=== PATIENT | male | born 1940 | race African-American/Black ===

== ENCOUNTER 2017-10-09 12:02 | Inpatient (IN) | payer MEDICARE, OTHER, SELFPAY ==
[2017-10-09] VITALS (11 sets, daily range): BP systolic 134–154; BP diastolic 58–79; PULSE 43–83; RESP 16–20; TEMP 36.2–36.8; O2SAT 95–96; BMI 28.5; BMI 28.2; BMI 28.3
--- NOTE | 2017-10-09 12:27 | CT_ITS ---
STUDY: CT BRAIN WITHOUT CONTRAST REASON FOR EXAM: Male, 76 years old. Seizure, TIA, weakness RADIATION DOSAGE (If Supplied By Facility): CTDIvol = ( 44.99 ) mGy, DLP = ( 779.24 ) mGycm TECHNIQUE: Transaxial CT imaging of the brain was performed without administration of intravenous contrast material. Sagittal and coronal reconstructed images are provided and reviewed. Individualized dose optimization techniques were used for this CT. COMPARISON: 11/04/2013 FINDINGS: There is a small fat density within the left frontal scalp which may represent a small lipoma. Normal calvarium. There is moderate cerebral atrophy with widening of the extra-axial spaces and ventricular dilatation. There are areas of decreased attenuation within the white matter tracts of the supratentorial brain, consistent with microvascular disease changes. Normal basal ganglia and thalami. Normal brainstem. There is mild cerebellar atrophy. There is no intracranial hemorrhage. There are no findings of an acute ischemic infarction. Normal visualized paranasal sinuses. CT/Brain/Head without Contrast IMPRESSION: Chronic involutional changes. No acute intracranial abnormality. The ventricles are slightly larger than on the prior CT of 11/04/2013. Electronically Signed: Ian Guerra DO at 13:44 EDT Tel , Service support ,
--- NOTE | 2017-10-09 12:28 | EKG12_ITS ---
Test Reason : NEURO TYPE SYM Blood Pressure : / mmHG Vent. Rate : 054 BPM Atrial Rate : 054 BPM P-R Int : 184 ms QRS Dur : 084 ms QT Int : 460 ms P-R-T Axes : 027 017 064 degrees QTc Int : 436 ms Sinus bradycardia Nonspecific T wave abnormality Confirmed by EZEKIEL BRADLEY, SHERI ([id number]), acquisition editor OZIEL DIAL ([id number]) on 10/10/2017 2:53:35 PM Referred By: KATHLEEN Confirmed By:SHERI FALCON MD
--- NOTE | 2017-10-09 12:30 | RAD_ITS ---
STUDY: X-RAY CHEST REASON FOR EXAM: Male, 76 years old. Weakness and fatigue TECHNIQUE: Single AP portable view of the chest. COMPARISON: 03/09/2016 FINDINGS: The lungs are clear and expanded. There is no demonstrated pleural abnormality. Sternal cerclage wires and vascular clips are present from a prior sternotomy and coronary artery bypass graft procedure (CABG). Normal mediastinum and gia. Normal visualized pulmonary arteries. There is mild calcification of the aortic arch. There are diffuse degenerative changes of the visualized thoracic spine. The bones are demineralized. There is no demonstrated abnormality of the visualized soft tissue structures of the upper abdomen. RAD/Chest 1 View (Portable) IMPRESSION: Postoperative changes of coronary artery bypass graft. No focal consolidation. Electronically Signed: Ian Guerra DO at 12:52 EDT Tel , Service support ,
[2017-10-09 12:53] LABS: Absolute Neutrophil Count 2.4 X10^3/uL (2.0-7.7); Basophil# 0.02 X10^3/uL; Basophil% 0.4 % (0-1); Eosinophil# 0.34 X10^3/uL; Eosinophils% 7.1 % (0-5); Hematocrit 45.5 % (40-54); Hemoglobin 15.2 g/dl (13.0-16.5); Lymphocyte % 31.5 % (19-41); Mean Corp Hgb Conc 33.4 g/gl (32-36); Mean Corpuscular Hgb 30.4 pg (27.0-32.0); Mean Platelet Vol. 9.7 fl (6.2-12.0); Monocyte# 0.51 X10^3/uL; Monocyte% 10.7 % (0-10); Neutrophil # 2.38 X10^3/uL (2.7-7.7); Neutrophil % 50.1 % (47-70); Platelet Count 155 K/mm3 (150-450); RBC Distribution Width CV 13.4 % (11.6-14.6); RBC Distribution Width SD 44.5 fl (35.1-43.9); White Blood Count 4.8 K/mm3 (4.4-11.0)
[2017-10-09 12:54] LABS: POSITIVE COUNT NO; POSITIVE DIFFERENTIAL NO; POSITIVE MORPHOLOGY NO
[2017-10-09 13:46] LABS: ALB/GLOB Ratio 0.9 RATIO (0.9-2.4); AST(SGOT) 23 U/L (15-37); Alanine Aminotransfer ALT/SGPT 25 U/L (16-61); Albumin, Serum 3.7 g/dL (3.2-5.0); Alkaline Phosphatase 73 U/L (45-117); Anion Gap 6 (5-15); BUN 14 mg/dL (7-18); BUN/Creat Ratio 10.3 RATIO (10-20); Chloride 102 mmol/L (98-107); Creatinine, Serum 1.36 mg/dL (0.70-1.30); EST Glomerular Filtration Rate 54 mL/min (>60); Est Glom Filt Rate - Afr Amer 66 mL/min (>60); Globulin 4.1 g/dL (2.2-4.2); Glucose 90 mg/dL (74-106); Potassium 3.4 mmol/L (3.5-5.1); Protein, Total 7.8 g/dL (6.4-8.2); Sodium Level 139 mmol/L (136-145)
--- NOTE | 2017-10-09 14:17 | ED.VISSUMM ---
- ER Visit Summary Date of Service: 10/09/17 Chief Complaint: Possible seizures History of Present Illness: The patient is a 76 M who presents with possible seizures. This is been going on for about 6 months. The reports intermittent episodes of muscle rigidity and staring spells. He is also had increased urinary and fecal incontinence. They state he has been harder to wake up in the mornings and also had increased sleeping. He was seen in the office today. There was concern for possible seizures and he was sent in to expedite workup. Physical Examination: Afebrile vitals are normal Moist mucous membranes Heart regular rate and rhythm Lungs clear Abdomen soft Alert No focal or lateralizing neurological deficits, NIH stroke scale is 2 as he is unable to answer the month Or his age Test Results: EKG shows sinus bradycardia at a rate of 54. Labs unremarkable. Chest x-ray shows postoperative changes. CT of the head shows chronic changes no acute findings. Emergency Department Course and Treatment: His workup is essentially unremarkable. His primary care physician wanted him to be admitted for further workup including an EEG. Patient discussed with the hospitalist and admitted. Treatment Plan: [] Disposition: Admit Impression: Seizures This note was generated with [employer] dictation software. It may contain incorrect words, spelling, and punctuation that were not noted in review of the chart prior to signing ED Disposition - Plan for ED Patient: Chief Complaint: Neuro S/Sx Referrals: Delia Shaikh DO [Primary Care Provider] -
--- NOTE | 2017-10-09 14:23 | NURSING ---
PCU SEIZURES KATHLEEN/ASHELFAH
--- NOTE | 2017-10-09 14:29 | CASEMGMT ---
Social Work Note Referral from Dr. Jarrell as pt's was inquiring about additional home health services. [facility], but states she was told they could get more if they went through the hospital. Also stated that she had a wedding at the end of the month and wanted to know if there were respite services. In to speak with pt and and hospitalist was talking to them. Will attempt to see as time allows. Leia Farrar, COMMISSIONS MANAGER, RUNNING RIGGER
--- NOTE | 2017-10-09 14:45 | PCM.HP.STD ---
Problem List (1) Stage 3 chronic kidney disease Status: Chronic (2) Depression Status: Chronic (3) Benign prostatic hyperplasia Status: Chronic (4) Hyperlipidemia Status: Chronic (5) Hypertension Status: Chronic (6) Status post coronary artery bypass graft Status: Chronic (7) Coronary artery disease Status: Chronic (8) History of esophageal tear Status: Chronic (9) History of prostate cancer Status: Chronic History of Present Illness Date of Admission: 10/09/17 Chief Complaint: Possible seizure. The patient is a 76 year old M with past medical history as mentioned above presented to the ER by his PCP for admission and evaluation for possible seizure. At this time, the patient is alert but disoriented to place and time because he is demented and he was not able to provide any history. His and his caregiver were at the bedside and he provided most of the information. According to his , the patient has been having episodes what it looks like seizure. The described those episodes as patient becomes stiff mainly on the upper part of his body, clenching both hands associated with staring eyes, lasts for about few minutes and patient becomes very weak and lousy afterwards. She reported that he has been having increased urinary and fecal incontinence. Those episodes has been happening since March,, it happens every few days. The caregiver mentioned that 2 days ago, she tried to wake him up and it was very hard to wake him up, took her more than 30 minutes to have him open his eyes and she mentioned that he has been rigid and had urine incontinence. There is no reported obvious seizure described by the or the caregiver. Also, his mentioned that he has been getting very weak and tired, sleepy most of his days over the last few weeks. The patient knows his name and date of on and he denied any pains. In the emergency department, his heart rate was in the high 50s, other vital signs are stable. His routine blood work was remarkable for potassium of 3.4 and creatinine of 1.26, otherwise normal. LFT was normal. Urine analysis revealed no evidence of acute cystitis. CT scan brain showed no acute infarction or hemorrhage. Chest x-ray showed no acute infiltrate, consolidation or effusion. He is being admitted for evaluation for possible seizure. Past Medical History Past Medical History (Chronic Problems): Chronic Problems Stage 3 chronic kidney disease (Chronic) Depression (Chronic) Benign prostatic hyperplasia (Chronic) Hyperlipidemia (Chronic) Hypertension (Chronic) Status post coronary artery bypass graft (Chronic) Coronary artery disease (Chronic) History of esophageal tear (Chronic) History of prostate cancer (Chronic) Allergies No Known Allergies Allergy (Verified 10/09/17 12:04) Home Medications: Ambulatory Orders Medication Instructions Recorded Aspirin [Aspirin, Baby] 81 mg PO DAILY@0800 02/09/16 Atenolol [Tenormin (Beta Lorin)] 100 mg PO BID 02/09/16 Hydralazine HCl 50 mg PO BID 02/09/16 Memantine HCl 10 mg PO BID 02/09/16 Pravastatin [Pravachol] 20 mg PO DAILY 02/09/16 Sertraline HCl [Zoloft] 50 mg PO BID 02/09/16 Triamterene/Hydrochlorothiazid 1 each PO DAILY 02/09/16 [Triamterene-Hctz 37.5-25 mg Tb] Chlorpromazine HCl 10 mg PO PRN PRN 03/09/16 Cholecalciferol (VIT D3) [Vitamin 1,000 unit PO BID 03/09/16 D] Melatonin/Pyridoxine HCl (B6) 2.5 each PO QHS PRN PRN 03/09/16 [Melatonin 1 mg Tablet] Omeprazole [Prilosec] 20 mg PO DAILY 03/09/16 Tamsulosin HCl [Flomax] 0.4 mg PO DAILY 03/09/16 Surgical History: coronary bypass surgery Psychiatric History: Depression Smoking Status: Former smoker Alcohol: None Drugs: None - *Family History Maternal History Items: Diabetes, Heart Disease Paternal History Items: No pertinent history Review of Systems Constitutional: Reports: Weakness, Fatigue. Denies: Anorexia, Fever Eyes: Denies: Blurred vision, Double vision, Drainage, Redness, Vision Change HEENT: Denies: Difficulty Hearing, Ear Pain, Eye Pain, Nasal Congestion, Sore Throat Cardiovascular: Denies: Chest Pain, Chest Pressure, Chest Tightness, Palpitations, Syncope Respiratory: Denies: Cough, Pleuritic Pain, Shortness of Breath, Sputum production, Wheezing Gastrointestinal: Denies: Abdominal Pain, Constipation, Diarrhea, Nausea, Vomiting Genitourinary: Denies: Dysuria, Frequency, Hematuria Musculoskeletal: Denies: Arm Pain, Back Pain, Foot Pain Skin: Denies: Dryness, Rash Neurological: Reports: Confusion. Denies: Balance problems, Double vision, Change in Speech, Headaches, Incoordination, Numbness Psychiatric: Reports: Depression. Denies: Anxiety Endocrine: Denies: Change in Body Habitus, Polydipsia VTE Information - Inpt Only VTE Present on Admission: No VTE Mechan Device Prophylaxis: None VTE Pharm Prophylaxis ordered?: Yes - Physical Exam General: Alert, Cooperative, No apparent distress, Confused, Disoriented HEENT: Atraumatic, PERRLA, EOMI Oral: Moist Mucosa, No Gingival or Mucosal Lesions/ Ulcerations Neck: Supple, No JVD, Negative Carotid Bruits, Trachea Midline, Thyroid Normal Size and Texture Lungs: Clear to auscultation, No rhonchi, No wheeze, No rales, Diminished Cardiovascular: Regular rate, Regular Rhythm, Normal S1, Normal S2, No murmurs, PMI Normal Abdomen: Bowel Sounds Present, Soft, Non Tender, Non-Distended, No Hepato-splenomegaly Extremities: No clubbing, No cyanosis, Edema - Trace edema. Skin: No rashes, No breakdown Lymphatic: No Cervical, Supraclavicular, or Inguinal Adenopathy Neurological: Cranial nerves II-XII grossly intact, Motor Exam 5/5 strength throughout Psych/Mental Status: Flat Affect Vital Signs Temp Pulse Resp BP Pulse Ox 97.2 F L 83 18 137/74 H 96 10/09/17 12:05 10/09/17 12:05 10/09/17 12:05 10/09/17 12:05 10/09/17 12:05 Laboratory Tests 10/09/17 10/09/17 10/09/17 Range/Units 13:20 13:15 12:40 WBC (4.4-11.0) K/mm3 RBC (4.6-6.2) M/mm3 Hgb (13.0-16.5) g/dl Hct (40-54) % MCV (80-94) fL MCH (27.0-32.0) pg MCHC (32-36) g/gl RDW (11.6-14.6) % RDW Differential (35.1-43.9) fl Plt Count (150-450) K/mm3 MPV (6.2-12.0) fl Immature Gran % (Auto) (0.0-0.9) % Neut % (Auto) (47-70) % Lymph % (Auto) (19-41) % [place] % (Auto) (0-10) % Eos % (Auto) (0-5) % Baso % (Auto) (0-1) % Absolute Neuts (auto) (2.0-7.7) X10^3/uL Absolute Lymphs (auto) (0.83-4.51) X10^3/ul Total Counted Sodium 139 Cancelled Potassium 3.4 L Cancelled Chloride 102 Cancelled Carbon Dioxide 31.0 Cancelled Anion Gap 6 Cancelled BUN 14 Cancelled Creatinine 1.36 H Cancelled Estim Creat Clear Calc 45.40 Cancelled Est GFR (MDRD) Af Amer 66 Cancelled Est GFR (MDRD) Non-Af 54 L Cancelled BUN/Creatinine Ratio 10.3 Cancelled Glucose 90 Cancelled Calcium 9.0 Cancelled Total Bilirubin 0.70 Cancelled AST 23 Cancelled ALT 25 Cancelled Alkaline Phosphatase 73 Cancelled Total Protein 7.8 Cancelled Albumin 3.7 Cancelled Globulin 4.1 Cancelled Albumin/Globulin Ratio 0.9 Cancelled Urine Color Yellow (Yellow) Urine Clarity Clear (Clear) Urine pH 7.0 (5.0 - 8.0) Ur Specific [place] 1.005 (1.002-1.030) Urine Protein Negative (Negative) mg/dl Urine Glucose (UA) Normal (Normal) mg/dl Urine Ketones Negative (Negative) mg/dl Urine Occult Blood Negative (Negative) /ul Urine Nitrite Negative (Negative) Urine Bilirubin Negative (Negative) mg/dL Urine Urobilinogen Normal (Normal) mg/dl Ur Leukocyte Esterase Negative (Negative) /ul Urine RBC 0 SEEN (0-5) /hpf Urine WBC 0 SEEN (0-5) /hpf Ur Squamous Epith Cells 0 SEEN (0-5) /hpf Urine Bacteria 0 SEEN (None Seen) /hpf Urine Mucus 0 SEEN (<or=2+) /hpf 10/09/17 Range/Units 12:40 WBC 4.8 (4.4-11.0) K/mm3 RBC 5.00 (4.6-6.2) M/mm3 Hgb 15.2 (13.0-16.5) g/dl Hct 45.5 (40-54) % MCV 91.0 (80-94) fL MCH 30.4 (27.0-32.0) pg MCHC 33.4 (32-36) g/gl RDW 13.4 (11.6-14.6) % RDW Differential 44.5 H (35.1-43.9) fl Plt Count 155 (150-450) K/mm3 MPV 9.7 (6.2-12.0) fl Immature Gran % (Auto) 0.200 (0.0-0.9) % Neut % (Auto) 50.1 (47-70) % Lymph % (Auto) 31.5 (19-41) % [place] % (Auto) 10.7 H (0-10) % Eos % (Auto) 7.1 H (0-5) % Baso % (Auto) 0.4 (0-1) % Absolute Neuts (auto) 2.4 (2.0-7.7) X10^3/uL Absolute Lymphs (auto) 1.50 (0.83-4.51) X10^3/ul Total Counted Not Reportable Sodium Potassium Chloride Carbon Dioxide Anion Gap BUN Creatinine Estim Creat Clear Calc Est GFR (MDRD) Af Amer Est GFR (MDRD) Non-Af BUN/Creatinine Ratio Glucose Calcium Total Bilirubin AST ALT Alkaline Phosphatase Total Protein Albumin Globulin Albumin/Globulin Ratio Urine Color (Yellow) Urine Clarity (Clear) Urine pH (5.0 - 8.0) Ur Specific [place] (1.002-1.030) Urine Protein (Negative) mg/dl Urine Glucose (UA) (Normal) mg/dl Urine Ketones (Negative) mg/dl Urine Occult Blood (Negative) /ul Urine Nitrite (Negative) Urine Bilirubin (Negative) mg/dL Urine Urobilinogen (Normal) mg/dl Ur Leukocyte Esterase (Negative) /ul Urine RBC (0-5) /hpf Urine WBC (0-5) /hpf Ur Squamous Epith Cells (0-5) /hpf Urine Bacteria (None Seen) /hpf Urine Mucus (<or=2+) /hpf Clinical Impression(s) from Imaging Studies Brain CT 10/09/17 12:27 IMPRESSION: Chronic involutional changes. No acute intracranial abnormality. The ventricles are slightly larger than on the prior CT of 11/04/2013. Electronically Signed: Ian Guerra DO at 13:44 EDT Tel , Service support , Chest X-Ray 10/09/17 12:30 IMPRESSION: Postoperative changes of coronary artery bypass graft. No focal consolidation. Electronically Signed: Ianmariluz Guerra DO at 12:52 EDT Tel , Service support , Assessment/Plan This is a 76 years old male patient referred to the ER by PCP for admission for probable seizure. #1 probable seizure: CT scan brain without acute findings. Routine blood work was remarkable for mild hypokalemia and creatinine 4.36, otherwise normal. LFTs normal. EKG revealed sinus bradycardia, normal TX interval, normal QRS, normal QTC, no acute ischemic changes. Plan: Admit to PCU, cardiac monitoring, seizure precautions, fall precautions, EEG, MRI brain, neurology consult, IV fluids with potassium replacement, IV Ativan as needed for seizure, repeat BMP tomorrow morning, PT OT evaluation and treatment, case management consult for proper placement to retirement facility. #2 CAD status post CABG: EKG reviewed, no acute ischemic changes. Patient denies any chest pain. Continue aspirin, statins and atenolol. #3 hypertension: Blood pressure stable, continue atenolol, hydralazine, triamterene and HCTZ. #4 hyperlipidemia: Continue statins. #5 history of prostate cancer: Status post ablation therapy, stable. #6 chronic kidney disease stage III: Baseline creatinine has been around 1.3-1.5 mg/dL, admission creatinine is 1.26, stable at baseline. #7 history of esophageal tear: Status post repair, stable. #8 depression: Continue Zoloft. #9 DVT prophylaxis: Subcu heparin. This note was generated with [employer] dictation software. It may contain incorrect words, spelling, and punctuation that were not noted in checking the note before signing. Code Visit Inpatient E&M: 90869 Init Hosp L3
--- NOTE | 2017-10-09 14:53 | HP.PCM_ITS ---
Problem List (1) Stage 3 chronic kidney disease Status: Chronic (2) Depression Status: Chronic (3) Benign prostatic hyperplasia Status: Chronic (4) Hyperlipidemia Status: Chronic (5) Hypertension Status: Chronic (6) Status post coronary artery bypass graft Status: Chronic (7) Coronary artery disease Status: Chronic (8) History of esophageal tear Status: Chronic (9) History of prostate cancer Status: Chronic History of Present Illness Date of Admission: 10/09/17 Chief Complaint: Possible seizure. The patient is a 76 year old M with past medical history as mentioned above presented to the ER by his PCP for admission and evaluation for possible seizure. At this time, the patient is alert but disoriented to place and time because he is demented and he was not able to provide any history. His and his caregiver were at the bedside and he provided most of the information. According to his , the patient has been having episodes what it looks like seizure. The described those episodes as patient becomes stiff mainly on the upper part of his body, clenching both hands associated with staring eyes, lasts for about few minutes and patient becomes very weak and lousy afterwards. She reported that he has been having increased urinary and fecal incontinence. Those episodes has been happening since March,, it happens every few days. The caregiver mentioned that 2 days ago, she tried to wake him up and it was very hard to wake him up, took her more than 30 minutes to have him open his eyes and she mentioned that he has been rigid and had urine incontinence. There is no reported obvious seizure described by the or the caregiver. Also, his mentioned that he has been getting very weak and tired, sleepy most of his days over the last few weeks. The patient knows his name and date of on and he denied any pains. In the emergency department, his heart rate was in the high 50s, other vital signs are stable. His routine blood work was remarkable for potassium of 3.4 and creatinine of 1.26, otherwise normal. LFT was normal. Urine analysis revealed no evidence of acute cystitis. CT scan brain showed no acute infarction or hemorrhage. Chest x-ray showed no acute infiltrate, consolidation or effusion. He is being admitted for evaluation for possible seizure. Past Medical History Past Medical History (Chronic Problems): Chronic Problems Stage 3 chronic kidney disease (Chronic) Depression (Chronic) Benign prostatic hyperplasia (Chronic) Hyperlipidemia (Chronic) Hypertension (Chronic) Status post coronary artery bypass graft (Chronic) Coronary artery disease (Chronic) History of esophageal tear (Chronic) History of prostate cancer (Chronic) Allergies No Known Allergies Allergy (Verified 10/09/17 12:04) Home Medications: Ambulatory Orders Medication Instructions Recorded Aspirin [Aspirin, Baby] 81 mg PO DAILY@0800 02/09/16 Atenolol [Tenormin (Beta Lorin)] 100 mg PO BID 02/09/16 Hydralazine HCl 50 mg PO BID 02/09/16 Memantine HCl 10 mg PO BID 02/09/16 Pravastatin [Pravachol] 20 mg PO DAILY 02/09/16 Sertraline HCl [Zoloft] 50 mg PO BID 02/09/16 Triamterene/Hydrochlorothiazid 1 each PO DAILY 02/09/16 [Triamterene-Hctz 37.5-25 mg Tb] Chlorpromazine HCl 10 mg PO PRN PRN 03/09/16 Cholecalciferol (VIT D3) [Vitamin 1,000 unit PO BID 03/09/16 D] Melatonin/Pyridoxine HCl (B6) 2.5 each PO QHS PRN PRN 03/09/16 [Melatonin 1 mg Tablet] Omeprazole [Prilosec] 20 mg PO DAILY 03/09/16 Tamsulosin HCl [Flomax] 0.4 mg PO DAILY 03/09/16 Surgical History: coronary bypass surgery Psychiatric History: Depression Smoking Status: Former smoker Alcohol: None Drugs: None - *Family History Maternal History Items: Diabetes, Heart Disease Paternal History Items: No pertinent history Review of Systems Constitutional: Reports: Weakness, Fatigue. Denies: Anorexia, Fever Eyes: Denies: Blurred vision, Double vision, Drainage, Redness, Vision Change HEENT: Denies: Difficulty Hearing, Ear Pain, Eye Pain, Nasal Congestion, Sore Throat Cardiovascular: Denies: Chest Pain, Chest Pressure, Chest Tightness, Palpitations, Syncope Respiratory: Denies: Cough, Pleuritic Pain, Shortness of Breath, Sputum production, Wheezing Gastrointestinal: Denies: Abdominal Pain, Constipation, Diarrhea, Nausea, Vomiting Genitourinary: Denies: Dysuria, Frequency, Hematuria Musculoskeletal: Denies: Arm Pain, Back Pain, Foot Pain Skin: Denies: Dryness, Rash Neurological: Reports: Confusion. Denies: Balance problems, Double vision, Change in Speech, Headaches, Incoordination, Numbness Psychiatric: Reports: Depression. Denies: Anxiety Endocrine: Denies: Change in Body Habitus, Polydipsia VTE Information - Inpt Only VTE Present on Admission: No VTE Mechan Device Prophylaxis: None VTE Pharm Prophylaxis ordered?: Yes - Physical Exam General: Alert, Cooperative, No apparent distress, Confused, Disoriented HEENT: Atraumatic, PERRLA, EOMI Oral: Moist Mucosa, No Gingival or Mucosal Lesions/ Ulcerations Neck: Supple, No JVD, Negative Carotid Bruits, Trachea Midline, Thyroid Normal Size and Texture Lungs: Clear to auscultation, No rhonchi, No wheeze, No rales, Diminished Cardiovascular: Regular rate, Regular Rhythm, Normal S1, Normal S2, No murmurs, PMI Normal Abdomen: Bowel Sounds Present, Soft, Non Tender, Non-Distended, No Hepato- splenomegaly Extremities: No clubbing, No cyanosis, Edema - Trace edema. Skin: No rashes, No breakdown Lymphatic: No Cervical, Supraclavicular, or Inguinal Adenopathy Neurological: Cranial nerves II-XII grossly intact, Motor Exam 5/5 strength throughout Psych/Mental Status: Flat Affect Vital Signs Temp Pulse Resp BP Pulse Ox 97.2 F L 83 18 137/74 H 96 10/09/17 12:05 10/09/17 12:05 10/09/17 12:05 10/09/17 12:05 10/09/17 12:05 Laboratory Tests 3 10/09/17 10/09/17 10/09/17 Range/Units 13:20 13:15 12:40 WBC (4.4-11.0) K/mm3 RBC (4.6-6.2) M/mm3 Hgb (13.0-16.5) g/dl Hct (40-54) % MCV (80-94) fL MCH (27.0-32.0) pg MCHC (32-36) g/gl RDW (11.6-14.6) % RDW Differential (35.1-43.9) fl Plt Count (150-450) K/mm3 MPV (6.2-12.0) fl Immature Gran % (Auto) (0.0-0.9) % Neut % (Auto) (47-70) % Lymph % (Auto) (19-41) % Robertson % (Auto) (0-10) % Eos % (Auto) (0-5) % Baso % (Auto) (0-1) % Absolute Neuts (auto) (2.0-7.7) X10^3/uL Absolute Lymphs (auto) (0.83-4.51) X10^3/ul Total Counted Sodium 139 Cancelled Potassium 3.4 L Cancelled Chloride 102 Cancelled Carbon Dioxide 31.0 Cancelled Anion Gap 6 Cancelled BUN 14 Cancelled Creatinine 1.36 H Cancelled Estim Creat Clear Calc 45.40 Cancelled Est GFR (MDRD) Af Amer 66 Cancelled Est GFR (MDRD) Non-Af 54 L Cancelled BUN/Creatinine Ratio 10.3 Cancelled Glucose 90 Cancelled Calcium 9.0 Cancelled Total Bilirubin 0.70 Cancelled AST 23 Cancelled ALT 25 Cancelled Alkaline Phosphatase 73 Cancelled Total Protein 7.8 Cancelled Albumin 3.7 Cancelled Globulin 4.1 Cancelled Albumin/Globulin Ratio 0.9 Cancelled Urine Color Yellow (Yellow) Urine Clarity Clear (Clear) Urine pH 7.0 (5.0 - 8.0) Ur Specific Bergen 1.005 (1.002-1.030) Urine Protein Negative (Negative) mg/dl Urine Glucose (UA) Normal (Normal) mg/dl Urine Ketones Negative (Negative) mg/dl Urine Occult Blood Negative (Negative) /ul Urine Nitrite Negative (Negative) Urine Bilirubin Negative (Negative) mg/dL Urine Urobilinogen Normal (Normal) mg/dl Ur Leukocyte Esterase Negative (Negative) /ul Urine RBC 0 SEEN (0-5) /hpf Urine WBC 0 SEEN (0-5) /hpf Ur Squamous Epith Cells 0 SEEN (0-5) /hpf Urine Bacteria 0 SEEN (None Seen) /hpf Urine Mucus 0 SEEN (<or=2+) /hpf 3 /14/18 Range/Units 12:40 WBC 4.8 (4.4-11.0) K/mm3 RBC 5.00 (4.6-6.2) M/mm3 Hgb 15.2 (13.0-16.5) g/dl Hct 45.5 (40-54) % MCV 91.0 (80-94) fL MCH 30.4 (27.0-32.0) pg MCHC 33.4 (32-36) g/gl RDW 13.4 (11.6-14.6) % RDW Differential 44.5 H (35.1-43.9) fl Plt Count 155 (150-450) K/mm3 MPV 9.7 (6.2-12.0) fl Immature Gran % (Auto) 0.200 (0.0-0.9) % Neut % (Auto) 50.1 (47-70) % Lymph % (Auto) 31.5 (19-41) % Robertson % (Auto) 10.7 H (0-10) % Eos % (Auto) 7.1 H (0-5) % Baso % (Auto) 0.4 (0-1) % Absolute Neuts (auto) 2.4 (2.0-7.7) X10^3/uL Absolute Lymphs (auto) 1.50 (0.83-4.51) X10^3/ul Total Counted Not Reportable Sodium Potassium Chloride Carbon Dioxide Anion Gap BUN Creatinine Estim Creat Clear Calc Est GFR (MDRD) Af Amer Est GFR (MDRD) Non-Af BUN/Creatinine Ratio Glucose Calcium Total Bilirubin AST ALT Alkaline Phosphatase Total Protein Albumin Globulin Albumin/Globulin Ratio Urine Color (Yellow) Urine Clarity (Clear) Urine pH (5.0 - 8.0) Ur Specific Bergen (1.002-1.030) Urine Protein (Negative) mg/dl Urine Glucose (UA) (Normal) mg/dl Urine Ketones (Negative) mg/dl Urine Occult Blood (Negative) /ul Urine Nitrite (Negative) Urine Bilirubin (Negative) mg/dL Urine Urobilinogen (Normal) mg/dl Ur Leukocyte Esterase (Negative) /ul Urine RBC (0-5) /hpf Urine WBC (0-5) /hpf Ur Squamous Epith Cells (0-5) /hpf Urine Bacteria (None Seen) /hpf Urine Mucus (<or=2+) /hpf Clinical Impression(s) from Imaging Studies Brain CT 10/09/17 12:27 IMPRESSION: Chronic involutional changes. No acute intracranial abnormality. The ventricles are slightly larger than on the prior CT of 11/04/2013. Electronically Signed: Ian Guerra DO at 13:44 EDT Tel , Service support , Chest X-Ray 10/09/17 12:30 IMPRESSION: Postoperative changes of coronary artery bypass graft. No focal consolidation. Electronically Signed: Ian DO Charlie at 12:52 EDT Tel , Service support , Assessment/Plan This is a 76 years old male patient referred to the ER by PCP for admission for probable seizure. #1 probable seizure: CT scan brain without acute findings. Routine blood work was remarkable for mild hypokalemia and creatinine 4.36, otherwise normal. LFTs normal. EKG revealed sinus bradycardia, normal MD interval, normal QRS, normal QTC, no acute ischemic changes. Plan: Admit to PCU, cardiac monitoring, seizure precautions, fall precautions, EEG, MRI brain, neurology consult, IV fluids with potassium replacement, IV Ativan as needed for seizure, repeat BMP tomorrow morning, PT OT evaluation and treatment, case management consult for proper placement to [facility] facility. #2 CAD status post CABG: EKG reviewed, no acute ischemic changes. Patient denies any chest pain. Continue aspirin, statins and atenolol. #3 hypertension: Blood pressure stable, continue atenolol, hydralazine, triamterene and HCTZ. #4 hyperlipidemia: Continue statins. #5 history of prostate cancer: Status post ablation therapy, stable. #6 chronic kidney disease stage III: Baseline creatinine has been around 1.3- 1.5 mg/dL, admission creatinine is 1.26, stable at baseline. #7 history of esophageal tear: Status post repair, stable. #8 depression: Continue Zoloft. #9 DVT prophylaxis: Subcu heparin. This note was generated with [employer] dictation software. It may contain incorrect words, spelling, and punctuation that were not noted in checking the note before signing. Code Visit Inpatient E&M: 25105 Init Hosp L3
--- NOTE | 2017-10-09 15:16 | NURSING ---
CALLED [facility], TALKED TO JUAN. SHE TOOK ALL THE INFO AND WILL FORWARD IT TO CASE MANAGEMENT
--- NOTE | 2017-10-09 15:24 | MRI_ITS ---
STUDY: MRI BRAIN WITHOUT CONTRAST REASON FOR EXAM: Male, 76 years old. Weakness TECHNIQUE: Standardized multiplanar fat and water weighted pulse sequences were obtained. COMPARISON: MRI of the brain on April 25 2010 FINDINGS: Ventricular enlargement disproportionate to cortical sulcal prominence and mild diffuse periventricular white matter hyperintensity possibly representing resorption of CSF which may be consistent with communicating hydrocephalus or NPH. However, the sylvian aqueduct is small and the fourth ventricle is normal in size which makes it difficult to exclude sylvian aqueduct stenosis. Chronic ischemic changes within the willian. Findings consistent with midbrain atrophy Normal bilateral basal ganglia. Normal thalami. There is no extra-axial fluid accumulation. Normal flow voids within the major intracranial circulation suggesting patency by spin echo criteria. Partial empty sella deformity of uncertain significance. Normal, infundibular stalk, optic chiasm and hypothalamus. Normal tectal plate and pineal gland. Normal medulla. Normal cerebellum. Normal basal cisterns. Normal bilateral temporal bones. Normal bilateral internal auditory canals. No demonstrated orbital abnormality, within the constraints of a routine brain study. Minor mucosal thickening of the ethmoid air cells.. Normal calvarium and skull base. Normal visualized soft tissue structures. Normal visualized upper cervical spine. MRI/Brain without Contrast IMPRESSION: Cerebral atrophy and ending which may be consistent with normal pressure hydrocephalus or sylvian aqueduct stenosis which has a similar appearance. Radionuclide cisternogram would be helpful for further assessment evaluation if indicated . Chronic ischemic changes within the willian and midbrain atrophy. No evidence for acute infarct Electronically Signed: Antonio Mcmillan MD at 20:00 EDT , Service support ,
--- NOTE | 2017-10-09 15:42 | NURSING ---
Attempted to request home med list from Dr. Shaikh's office, however they are closed. Pt's reports med list completed in ED and up to date.
--- NOTE | 2017-10-09 21:21 | NURSING ---
Pt. ripped out IV for second time since admission. Will not keep on telemetry unit. Pt. very confused. Per , states pt. has sundowners. Will notify MD. Will monitor pt.
[2017-10-09] MEDS: hydrALAZINE 50 MG Tablet PO (21:23)
[2017-10-09] MEDS: Memantine Hydrochloride 10 MG Tablet PO (21:23)
[2017-10-09] MEDS: Heparin Injection (Vial) 5,000 UNIT/ML VIAL 5000 UNIT SC (21:23)
[2017-10-09] MEDS: 0.9% NaCl Peripheral Flush Adult/Peds IV (22:28)
[2017-10-10] VITALS (7 sets, daily range): BP systolic 111–150; BP diastolic 63–74; PULSE 47–54; RESP 16–18; TEMP 36.2–36.8; O2SAT 92–100
--- NOTE | 2017-10-10 | NURSING ---
2300 Attempted IV site x 3. Unable to obtain, called [facility] to start.
[2017-10-10] MEDS: Heparin Injection (Vial) 5,000 UNIT/ML VIAL 5000 UNIT SC ×2 (05:19→13:54)
[2017-10-10 06:30] LABS: Anion Gap 6 (5-15); BUN 11 mg/dL (7-18); BUN/Creat Ratio 9.7 RATIO (10-20); Calcium,Total 8.4 mg/dL (8.5-10.1); Chloride 105 mmol/L (98-107); Creatinine, Serum 1.13 mg/dL (0.70-1.30); EST Glomerular Filtration Rate 67 mL/min (>60); Est Glom Filt Rate - Afr Amer 81 mL/min (>60); Estimated Creatinine Clearance 54.65 ml/min; Glucose 86 mg/dL (74-106); Potassium 3.5 mmol/L (3.5-5.1); Sodium Level 138 mmol/L (136-145)
--- NOTE | 2017-10-10 08:29 | CPS ---
Went into Mr. Burnham's room to do EEG I explained what I was going to do with the test and he told me he would not do the test. Told his nurse and the head nurse they stated that he has been pulling at his monitor and pulled his IV out last night. Called the hospitalist and told him he does have a consult with Dr. Ochoa today.
--- NOTE | 2017-10-10 09:04 | NURSING ---
Addendum entered by Mira [place] Newborn 10/10/17 09:08: ADDISON MORALES NOT REBRANDER (ADDISON ETIENNE) MADE AWARE Original Note: PATIENT REFUSING TO TAKE MEDICATIONS. STATES THAT HE DOESNT TAKE ANY DAMN MEDICATIONS REFUSED EEG. OIL SPECULATOR YURI ASKED PATIENT IF HE WANTED SOMETHING TO EAT AND HE REFUSED. ADDISON PENA MADE AWARE OF PATIENT REFUSAL.
--- NOTE | 2017-10-10 09:22 | NURSING ---
WENT INTO PATIENT ROOM AND ENCOURAGED PATIENT TO EAT BREAKFAST, PATIENT WILLING TO EAT HIS BAGEL, STILL REFUSING MEDS AT THIS TIME
--- NOTE | 2017-10-10 10:16 | CASEMGMT ---
Face to Face with patient for initial transition planning/care coordination assessment. RN SIMON introduced self and role at [facility], pt voices understanding and consents to assessment at this time. Pt is sitting up in bed in no distress at this time. Pt is A/Ox3 at this time. Pt is confused at times and this RN CM unsure if pt is answering all questions appropriately at this time. CM to f/u with upon her arrival to hospital. Care providers, pharmacy, and demographics verified. See attached link. PLAN: [facility]BD [facility]
--- NOTE | 2017-10-10 10:25 | PCM.CONS.GEN ---
Reason for Consult Date of Consultation: 10/10/17 Reason for Consultation: possible seizure History of Present Illness: The patient is a 76 year old right handed male who presents with spells described below. pt is unable to give history, denies pain. he knows he is in [place] but doesnt know his age or the date. he knows his . per admit h&p:The patient is a 76 year old M with past medical history as mentioned above presented to the ER by his PCP for admission and evaluation for possible seizure. At this time, the patient is alert but disoriented to place and time because he is demented and he was not able to provide any history. His and his caregiver were at the bedside and he provided most of the information. According to his , the patient has been having episodes what it looks like seizure. The described those episodes as patient becomes stiff mainly on the upper part of his body, clenching both hands associated with staring eyes, lasts for about few minutes and patient becomes very weak and lousy afterwards. She reported that he has been having increased urinary and fecal incontinence. Those episodes has been happening since March,, it happens every few days. The caregiver mentioned that 2 days ago, she tried to wake him up and it was very hard to wake him up, took her more than 30 minutes to have him open his eyes and she mentioned that he has been rigid and had urine incontinence. There is no reported obvious seizure described by the or the caregiver. Also, his mentioned that he has been getting very weak and tired, sleepy most of his days over the last few weeks. The patient knows his name and date of on and he denied any pains. In the emergency department, his heart rate was in the high 50s, other vital signs are stable. His routine blood work was remarkable for potassium of 3.4 and creatinine of 1.26, otherwise normal. LFT was normal. Urine analysis revealed no evidence of acute cystitis. CT scan brain showed no acute infarction or hemorrhage. Chest x-ray showed no acute infiltrate, consolidation or effusion. He is being admitted for evaluation for possible seizure. Past Medical History Past Medical History (Chronic Problems): Chronic Problems Stage 3 chronic kidney disease (Chronic) Depression (Chronic) Benign prostatic hyperplasia (Chronic) Hyperlipidemia (Chronic) Hypertension (Chronic) Status post coronary artery bypass graft (Chronic) Coronary artery disease (Chronic) History of esophageal tear (Chronic) History of prostate cancer (Chronic) Allergies No Known Allergies Allergy (Verified 10/09/17 12:04) Home Medications: Ambulatory Orders Medication Instructions Recorded Aspirin [Aspirin, Baby] 81 mg PO DAILY@0800 02/09/16 Atenolol [Tenormin (Beta Lorin)] 150 mg PO DAILY 02/09/16 Hydralazine HCl 50 mg PO BID 02/09/16 Memantine HCl 10 mg PO BID 02/09/16 Pravastatin [Pravachol] 40 mg PO DAILY 02/09/16 Sertraline HCl [Zoloft] 50 mg PO DAILY 02/09/16 Triamterene/Hydrochlorothiazid 1 each PO DAILY 02/09/16 [Triamterene-Hctz 37.5-25 mg Tb] Chlorpromazine HCl 10 mg PO PRN PRN 03/09/16 Cholecalciferol (VIT D3) [Vitamin 2,000 unit PO DAILY 03/09/16 D] Melatonin/Pyridoxine HCl (B6) 2.5 each PO QHS PRN PRN 03/09/16 [Melatonin 1 mg Tablet] Omeprazole [Prilosec] 20 mg PO BID 03/09/16 Tamsulosin HCl [Flomax] 0.4 mg PO DAILY 03/09/16 Amlodipine [Norvasc] 2.5 mg PO DAILY 10/09/17 Surgical History: coronary bypass surgery Psychiatric History: Depression Lives: Spouse/ Significant Other Smoking Status: Former smoker Tobacco Use: Non-smoker Alcohol: None Drugs: None - *Family History Maternal History Items: Diabetes, Heart Disease Paternal History Items: No pertinent history Review of Systems Constitutional: Denies: Chills, Fever, Weight Change HEENT: Denies: Head Aches, Sinus Congestion, Sinus Drainage Cardiovascular: Denies: Chest Pain, Palpitations Respiratory: Denies: Cough, Shortness of breath at rest, Sputum production Gastrointestinal: Denies: Abdominal Pain, Nausea, Vomiting Genitourinary: Denies: Dysuria Musculoskeletal: Denies: Joint Pain, Joint Tenderness Skin: Denies: Rash, Wounds Neurological: Denies: Numbness, Tingling, Focal weakness Psychiatric: Denies: Anxiety, Depression, Homicidal Ideations, Suicidal Ideations Hematologic/ Lymphatic: Denies: Easy Bruising, Easy Bleeding - Physical Exam General: Alert, Cooperative HEENT: Atraumatic, PERRLA, EOMI, Normocephalic Neurological: Cranial nerves II-XII grossly intact, Deep Tendon Reflexes 2+/4 and Symmetrical, Neuro grossly intact, Motor Exam 5/5 strength throughout Psych/Mental Status: Normal Affect, Appropriate Vital Signs Temp Pulse Resp BP Pulse Ox 36.2 C L 52 L 18 111/74 95 10/10/17 09:15 10/10/17 09:15 10/10/17 09:15 10/10/17 09:15 10/10/17 09:15 Oxygen Delivery Method Room Air Weight: 84.3 kg Body Mass Index (BMI) 28.2 Intake and Output for Last 24 Hours 10/08/17 10/09/17 10/10/17 23:59 23:59 23:59 Intake Total 580 / 580 666 / 666 Balance 580 / 580 666 / 666 Laboratory Tests Past 24 Hrs 10/10/17 05:44 Sodium 138 Potassium 3.5 Chloride 105 Carbon Dioxide 27.0 Anion Gap 6 BUN 11 Creatinine 1.13 Estim Creat Clear Calc 54.65 Est GFR (MDRD) Af Amer 81 Est GFR (MDRD) Non-Af 67 BUN/Creatinine Ratio 9.7 L Glucose 86 Calcium 8.4 L Current Home Med List Medication Instructions Recorded Confirmed Type Aspirin [Aspirin, Baby] 81 mg PO DAILY@0800 02/09/16 10/09/17 History Atenolol [Tenormin (Beta Lorin)] 150 mg PO DAILY 02/09/16 10/09/17 History Hydralazine HCl 50 mg PO BID 02/09/16 10/09/17 History Memantine HCl 10 mg PO BID 02/09/16 10/09/17 History Pravastatin [Pravachol] 40 mg PO DAILY 02/09/16 10/09/17 History Sertraline HCl [Zoloft] 50 mg PO DAILY 02/09/16 10/09/17 History Triamterene/Hydrochlorothiazid 1 each PO DAILY 02/09/16 10/09/17 History [Triamterene-Hctz 37.5-25 mg Tb] Chlorpromazine HCl 10 mg PO PRN PRN 03/09/16 10/09/17 History Cholecalciferol (VIT D3) [Vitamin 2,000 unit PO DAILY 03/09/16 10/09/17 History D] Melatonin/Pyridoxine HCl (B6) 2.5 each PO QHS PRN PRN 03/09/16 10/09/17 History [Melatonin 1 mg Tablet] Omeprazole [Prilosec] 20 mg PO BID 03/09/16 10/09/17 History Tamsulosin HCl [Flomax] 0.4 mg PO DAILY 03/09/16 10/09/17 History Amlodipine [Norvasc] 2.5 mg PO DAILY 10/09/17 10/09/17 History Current Medications Generic Name Dose Route Start Last Admin Trade Name Freq PRN Reason Stop Dose Admin Aspirin 81 mg 10/10/17 08:00 10/10/17 09:09 Aspirin, Baby PO Not Given DAILY@0800 REPLACED BY [facility] Atenolol 150 mg 10/10/17 10:00 10/10/17 09:10 Tenormin (Beta Lorin) PO Not Given DAILY REPLACED BY [facility] Heparin Sodium (Porcine) 5,000 unit 10/09/17 22:00 10/10/17 05:19 Heparin Na SC 5,000 units Q8 BRANDON Administration Hydralazine HCl 50 mg 10/09/17 22:00 10/10/17 09:09 Apresoline PO Not Given BID REPLACED BY [facility] Sodium Chloride 250 mls @ 15 mls/hr 10/09/17 15:18 IV .[id number] PRN SALINE FLUSH Lorazepam 2 mg 10/09/17 15:24 Ativan IV X1 PRN Magnesium Hydroxide 30 ml 10/09/17 15:24 Milk Of Magnesia PO DAILY PRN Constipation Memantine 10 mg 10/09/17 22:00 10/10/17 09:10 Namenda PO Not Given BID REPLACED BY [facility] Pantoprazole Sodium 20 mg 10/10/17 10:00 10/10/17 09:10 Protonix PO Not Given DAILY REPLACED BY [facility] Pravastatin Sodium 40 mg 10/09/17 22:00 10/10/17 01:24 Pravachol PO Not Given QHS REPLACED BY [facility] Sertraline HCl 50 mg 10/10/17 10:00 10/10/17 09:10 Zoloft PO Not Given DAILY REPLACED BY [facility] Sodium Chloride 5 - 30 ml 10/09/17 15:18 10/09/17 22:28 IV 10 ml UD PRN Administration SALINE FLUSH Tamsulosin HCl 0.4 mg 10/10/17 10:00 10/10/17 09:10 Flomax PO Not Given DAILY BRANDON Triamterene/HCTZ 1 cap 10/10/17 10:00 10/10/17 09:10 Dyazide (G) PO Not Given DAILY BRANDON mri reviewed, no acute. severe diffuse atrophy consistent with history of dementia, aqueduct of sylvius appears open on saggital views Assessment/Plan syncope vs sz: mri no acute, refused eeg will initiate keppra 500mg bid ensure adequate hydration and avoid anthihypertensives as feasible ok to dc from neuro
--- NOTE | 2017-10-10 10:35 | CON.PCM_ITS ---
Reason for Consult Date of Consultation: 10/10/17 Reason for Consultation: possible seizure History of Present Illness: The patient is a 76 year old right handed male who presents with spells described below. pt is unable to give history, denies pain. he knows he is in [place] but doesnt know his age or the date. he knows his . per admit h&p:The patient is a 76 year old M with past medical history as mentioned above presented to the ER by his PCP for admission and evaluation for possible seizure. At this time, the patient is alert but disoriented to place and time because he is demented and he was not able to provide any history. His and his caregiver were at the bedside and he provided most of the information. According to his , the patient has been having episodes what it looks like seizure. The described those episodes as patient becomes stiff mainly on the upper part of his body, clenching both hands associated with staring eyes, lasts for about few minutes and patient becomes very weak and lousy afterwards. She reported that he has been having increased urinary and fecal incontinence. Those episodes has been happening since March, , it happens every few days. The caregiver mentioned that 2 days ago, she tried to wake him up and it was very hard to wake him up, took her more than 30 minutes to have him open his eyes and she mentioned that he has been rigid and had urine incontinence. There is no reported obvious seizure described by the or the caregiver. Also, his mentioned that he has been getting very weak and tired, sleepy most of his days over the last few weeks. The patient knows his name and date of on and he denied any pains. In the emergency department, his heart rate was in the high 50s, other vital signs are stable. His routine blood work was remarkable for potassium of 3.4 and creatinine of 1.26, otherwise normal. LFT was normal. Urine analysis revealed no evidence of acute cystitis. CT scan brain showed no acute infarction or hemorrhage. Chest x-ray showed no acute infiltrate, consolidation or effusion. He is being admitted for evaluation for possible seizure. Past Medical History Past Medical History (Chronic Problems): Chronic Problems Stage 3 chronic kidney disease (Chronic) Depression (Chronic) Benign prostatic hyperplasia (Chronic) Hyperlipidemia (Chronic) Hypertension (Chronic) Status post coronary artery bypass graft (Chronic) Coronary artery disease (Chronic) History of esophageal tear (Chronic) History of prostate cancer (Chronic) Allergies No Known Allergies Allergy (Verified 10/09/17 12:04) Home Medications: Ambulatory Orders Medication Instructions Recorded Aspirin [Aspirin, Baby] 81 mg PO DAILY@0800 02/09/16 Atenolol [Tenormin (Beta Lorin)] 150 mg PO DAILY 02/09/16 Hydralazine HCl 50 mg PO BID 02/09/16 Memantine HCl 10 mg PO BID 02/09/16 Pravastatin [Pravachol] 40 mg PO DAILY 02/09/16 Sertraline HCl [Zoloft] 50 mg PO DAILY 02/09/16 Triamterene/Hydrochlorothiazid 1 each PO DAILY 02/09/16 [Triamterene-Hctz 37.5-25 mg Tb] Chlorpromazine HCl 10 mg PO PRN PRN 03/09/16 Cholecalciferol (VIT D3) [Vitamin 2,000 unit PO DAILY 03/09/16 D] Melatonin/Pyridoxine HCl (B6) 2.5 each PO QHS PRN PRN 03/09/16 [Melatonin 1 mg Tablet] Omeprazole [Prilosec] 20 mg PO BID 03/09/16 Tamsulosin HCl [Flomax] 0.4 mg PO DAILY 03/09/16 Amlodipine [Norvasc] 2.5 mg PO DAILY 10/09/17 Surgical History: coronary bypass surgery Psychiatric History: Depression Lives: Spouse/ Significant Other Smoking Status: Former smoker Tobacco Use: Non-smoker Alcohol: None Drugs: None - *Family History Maternal History Items: Diabetes, Heart Disease Paternal History Items: No pertinent history Review of Systems Constitutional: Denies: Chills, Fever, Weight Change HEENT: Denies: Head Aches, Sinus Congestion, Sinus Drainage Cardiovascular: Denies: Chest Pain, Palpitations Respiratory: Denies: Cough, Shortness of breath at rest, Sputum production Gastrointestinal: Denies: Abdominal Pain, Nausea, Vomiting Genitourinary: Denies: Dysuria Musculoskeletal: Denies: Joint Pain, Joint Tenderness Skin: Denies: Rash, Wounds Neurological: Denies: Numbness, Tingling, Focal weakness Psychiatric: Denies: Anxiety, Depression, Homicidal Ideations, Suicidal Ideations Hematologic/ Lymphatic: Denies: Easy Bruising, Easy Bleeding - Physical Exam General: Alert, Cooperative HEENT: Atraumatic, PERRLA, EOMI, Normocephalic Neurological: Cranial nerves II-XII grossly intact, Deep Tendon Reflexes 2+/4 and Symmetrical, Neuro grossly intact, Motor Exam 5/5 strength throughout Psych/Mental Status: Normal Affect, Appropriate Vital Signs Temp Pulse Resp BP Pulse Ox 36.2 C L 52 L 18 111/74 95 10/10/17 09:15 10/10/17 09:15 10/10/17 09:15 10/10/17 09:15 10/10/17 09:15 Oxygen Delivery Method Room Air Weight: 84.3 kg Body Mass Index (BMI) 28.2 Intake and Output for Last 24 Hours 10/08/17 10/09/17 10/10/17 23:59 23:59 23:59 Intake Total 580 / 580 666 / 666 Balance 580 / 580 666 / 666 Laboratory Tests Past 24 Hrs 10/10/17 05:44 Sodium 138 Potassium 3.5 Chloride 105 Carbon Dioxide 27.0 Anion Gap 6 BUN 11 Creatinine 1.13 Estim Creat Clear Calc 54.65 Est GFR (MDRD) Af Amer 81 Est GFR (MDRD) Non-Af 67 BUN/Creatinine Ratio 9.7 L Glucose 86 Calcium 8.4 L Current Home Med List Medication Instructions Recorded Confirmed Type Aspirin [Aspirin, Baby] 81 mg PO DAILY@0800 02/09/16 10/09/17 History Atenolol [Tenormin (Beta Lorin)] 150 mg PO DAILY 02/09/16 10/09/17 History Hydralazine HCl 50 mg PO BID 02/09/16 10/09/17 History Memantine HCl 10 mg PO BID 02/09/16 10/09/17 History Pravastatin [Pravachol] 40 mg PO DAILY 02/09/16 10/09/17 History Sertraline HCl [Zoloft] 50 mg PO DAILY 02/09/16 10/09/17 History Triamterene/Hydrochlorothiazid 1 each PO DAILY 02/09/16 10/09/17 History [Triamterene-Hctz 37.5-25 mg Tb] Chlorpromazine HCl 10 mg PO PRN PRN 03/09/16 10/09/17 History Cholecalciferol (VIT D3) [Vitamin 2,000 unit PO DAILY 03/09/16 10/09/17 History D] Melatonin/Pyridoxine HCl (B6) 2.5 each PO QHS PRN PRN 03/09/16 10/09/17 History [Melatonin 1 mg Tablet] Omeprazole [Prilosec] 20 mg PO BID 03/09/16 10/09/17 History Tamsulosin HCl [Flomax] 0.4 mg PO DAILY 03/09/16 10/09/17 History Amlodipine [Norvasc] 2.5 mg PO DAILY 10/09/17 10/09/17 History Current Medications Generic Name Dose Route Start Last Admin Trade Name Freq PRN Reason Stop Dose Admin Aspirin 81 mg 10/10/17 08:00 10/10/17 09:09 Aspirin, Baby PO Not Given DAILY@0800 [facility] Atenolol 150 mg 10/10/17 10:00 10/10/17 09:10 Tenormin (Beta Lorin) PO Not Given DAILY [facility] Heparin Sodium (Porcine) 5,000 unit 10/09/17 22:00 10/10/17 05:19 Heparin Na SC 5,000 units Q8 [facility]ON Administration Hydralazine HCl 50 mg 10/09/17 22:00 10/10/17 09:09 Apresoline PO Not Given BID [facility] Sodium Chloride 250 mls @ 15 mls/hr 10/09/17 15:18 IV .[id number] PRN SALINE FLUSH Lorazepam 2 mg 10/09/17 15:24 Ativan IV X1 PRN Magnesium Hydroxide 30 ml 10/09/17 15:24 Milk Of Magnesia PO DAILY PRN Constipation Memantine 10 mg 10/09/17 22:00 10/10/17 09:10 Namenda PO Not Given BID [facility] Pantoprazole Sodium 20 mg 10/10/17 10:00 10/10/17 09:10 Protonix PO Not Given DAILY [facility] Pravastatin Sodium 40 mg 10/09/17 22:00 10/10/17 01:24 Pravachol PO Not Given QHS [facility] Sertraline HCl 50 mg 10/10/17 10:00 10/10/17 09:10 Zoloft PO Not Given DAILY [facility] Sodium Chloride 5 - 30 ml 10/09/17 15:18 10/09/17 22:28 IV 10 ml UD PRN Administration SALINE FLUSH Tamsulosin HCl 0.4 mg 10/10/17 10:00 10/10/17 09:10 Flomax PO Not Given DAILY [facility] Triamterene/HCTZ 1 cap 10/10/17 10:00 10/10/17 09:10 Dyazide (G) PO Not Given DAILY BRANDON mri reviewed, no acute. severe diffuse atrophy consistent with history of dementia, aqueduct of sylvius appears open on saggital views Assessment/Plan syncope vs sz: mri no acute, refused eeg will initiate keppra 500mg bid ensure adequate hydration and avoid anthihypertensives as feasible ok to dc from neuro
--- NOTE | 2017-10-10 11:10 | CASEMGMT ---
Intro role of CM to patient and his in room. was very tearful, emotional, repeating I can't keep doing this... he won't do the tests and I can't keep doing this. RN CM offered support, attempted to discuss home situation concerns. states she is overwhelmed and worn out with caring for . is willing to speak with adoption social worker re: options on dc. SANDRA Clemente updated. Curtis HOUSTONN RN ACM
--- NOTE | 2017-10-10 12:31 | CASEMGMT ---
Addendum entered by Elizabeth Garcia 10/10/17 13:16: SW spoke w/the SW at the [facility], she states pt is not service connected except for his hearing. Ian states pt does get 30 days of respite care in SNF per calendar year, does know if pt will qualify for respite this time since he needs terminal manager care, she will check w/her chief and let this SW know. SW did call Risa at [facility] and faxed referral, explained the situation to Risa. SW explained will let her know as soon as this SW knows if pt would qualify for a respite stay under [facility]. If pt does not, it would need to be private pay and SW will speak w/ again about what she would like to do. SW will continue to follow. SHAHNAZ Savage, CONFERENCE RESERVATIONIST Original Note: Addendum entered by Elizabeth Garcia 10/10/17 12:50: SANDRA called Narda Guajardo in the Home Based [facility]. She confirms pt's home services are through the [place] office. She cannot access the information regarding pt's service connection, called the SANDRA Sosa herself and let this SANDRA know that Ian will call this SANDRA back today. SHAHNAZ Savage, CONFERENCE RESERVATIONIST Original Note: CM spoke w/pt's , she is concerned about taking pt home, does not feel she can care for pt. SW met w/ in room in regard to discharge plan. states is worried about pt having more seizures and not knowing the warning signs, wants pt to go to SNF for a short time so they can watch him. SW explained that pt will not qualify under Medicare for SNF stay, would need to go private pay or apply for Medicaid. states they do not qualify for Medicaid, but indicated initially they could not afford private pat SNF either. Upon talking further, SW learned pt has aide services through the [facility], two hours per day and every other weekend. Also, has looked into AL at [facility] and [facility], in their memory care units. also plans to go to [place](was to go today in fact) to see a [facility] facility there. states the cost for the [facility] facility is $3600/month, the cost for [facility] and [facility] are $70,000-$80,000 per month. states they also have terminal manager care insurance that would cover about $50,000 per year of the assisted living cost. She states they could afford to pay for the assisted living for some time, but if pt were to live another 10 years it would be difficult for them. SW asked if pt is service connected, does not know. After further discussion, is considering paying privately for SNF for 1-2 weeks while she continues to explore assisted living options. SW gave a list of SNF's and approximate cost. then asked about [facility], states pt would be covered for 30 days of respite there. SW explained can look into this for her, and let her know. SANDRA called the SW at the [facility], she is on vacation. SANDRA directed to call Ian. SANDRA called Ian at [facility], message left. SANDRA will call the home based services in [place] shortly to see if someone there may be able to tell this SW if pt is service connected and if so, if it is the 70% needed to qualify for SNF. SANDRA will continue to follow. SHAHNAZ Savage, CONFERENCE RESERVATIONIST
--- NOTE | 2017-10-10 13:39 | CASEMGMT ---
Addendum entered by Elizabeth Garcia 10/10/17 15:02: SW spoke w/Jerica from the [facility], pt can have skilled services through Medicare along w/aide services. SW made referral to [facility], they can see pt tomorrow or Friday. SW received a message from SANDRA Sosa at the [facility], pt cannot go for respite care from the hospital, it has to be from home. SW spoke w/, she has already decided that she will take pt home. SW explained that the respite would not be covered, was aware as she spoke w/Ian from the [facility]. Ian states to fill out the GEC and they may be able to add more services due to pt having seizures now. SW and completed the GEC and it's been faxed to the [facility]. SW gave the numbers for the SW's at the [facility] if she wants to follow up w/them next week regarding respite care. SW also let know pt can get long term and PT from [facility]. states to not bother with the therapy, but she is open to the RN. SW let her know they will call her to set up a time to see pt on the weekend. states understanding. SW let Randy w/[facility] know that the home health will just be for long term and not PT. No further needs, pt home today w/, will continue [facility] w[facility]the [facility], will have long term through [facility]. will follow up next week possibly regarding respite at the senior living, and is looking skilled nursing at assisted living at [facility]. SW did leave a message for Risa at [facility] letting her know that pt will not be coming to [facility] today. SHAHNAZ Savage, DELIVERY AIDE Original Note: SW spoke w/ in room, inquired what she would like to do if the [facility] does not cover SNF placement. SW explained that the [facility] may not consider this respite care for pt, since she is looking at more skilled nursing placement for pt. states if the cost is not covered by the [facility], she will take pt home and continue to work on assisted living placement from home. states she put a deposit down at [facility] a year ago, and when she called recently, they do have availability. SW asked if she would like SW to look into getting pt into [facility] from here. wants to slow down a bit, take her time to decide. states she has calls in to their skilled nursing care insurance. Also, she wants to see the facility in [place] before making a final decision. Her son is also coming into town soon. asked about home health, SW explained can look into skilled services for pt, to see if pt can get skilled services (such as PT and nursing, and aide services a couple of times per week) while also getting services from the [facility]. does not want pt to lose the services through the [facility] so if it would impact that, she would not want the pt to have the skilled services. SW explained will look into this and let her know. SANDRA called Narda Guajardo in the home based therapy services at the [facility], message left. SANDRA called [facility], Jayc is not certain if they can see a pt for skilled when the pt is getting aide services through the [facility]. Plan: SANDRA waiting for calls back from the SANDRA at the [facility] re: if pt qualifies for respite stay at [facility], and waiting for a call back from Narda Guajardo in home based services to see if pt can get skilled services through Medicare while also getting services at home. SHAHNAZ Savage, DELIVERY AIDE
--- NOTE | 2017-10-10 13:45 | PCM.PROGNOTE ---
<Alberto Cardona - Last Filed: 10/10/17 13:45> Subjective: No issues overnight. Pt without HENSON, dizziness, LH, twitches, diplopia, blurry vision, weakness, nausea/vomiting/diarrhea. Refused EEG. Refused Keppra. Refused all AM meds. not comfortably taking him home. She desires him to be placed. He is doing poorly at home. Dementia is worsening. - Physical Exam General: Alert, Oriented x3, Cooperative HEENT: Atraumatic, PERRLA, EOMI, Normocephalic Neck: Supple, No JVD, Negative Carotid Bruits Lungs: Clear to auscultation, Normal air movement Cardiovascular: Regular rate, No murmurs Abdomen: Bowel Sounds Present, Soft, Non Tender Extremities: No edema, Capillary Refill Less than 3 Seconds Skin: No rashes, No breakdown Musculoskeletal: No Tenderness to Palpation of Joints or Extremities Neurological: Cranial nerves II-XII grossly intact Psych/Mental Status: Normal Affect, Appropriate Vital Signs Temp Pulse Resp BP Pulse Ox 97.2 F L 51 L 18 111/74 95 10/10/17 09:15 10/10/17 12:00 10/10/17 09:15 10/10/17 09:15 10/10/17 09:15 Oxygen Delivery Method Room Air Weight: 84.3 kg Body Mass Index (BMI) 28.2 Intake and Output for Last 24 Hours 10/08/17 10/09/17 10/10/17 23:59 23:59 23:59 Intake Total 580 / 580 966 / 966 Balance 580 / 580 966 / 966 Laboratory Tests Past 24 Hrs 10/10/17 05:44 Sodium 138 Potassium 3.5 Chloride 105 Carbon Dioxide 27.0 Anion Gap 6 BUN 11 Creatinine 1.13 Estim Creat Clear Calc 54.65 Est GFR (MDRD) Af Amer 81 Est GFR (MDRD) Non-Af 67 BUN/Creatinine Ratio 9.7 L Glucose 86 Calcium 8.4 L Medical Necessity - Tobacco Use Smoking Status: Former smoker Tobacco Use: Non-smoker Assessment/Plan 1. Seizure vs sycopl episodes - refused EEG, MRI without acute infarct. Neuro following - started keppra - pt currently refuses. PTOT. UA neg. 2. Dementia - worsening - pt needs placement and likely extended care / memory care. SW consult. Avoid anticholinergics 3. Hypokalemia resolved. 4. Chronic issues stable. Pt refusing home medications. DVT ppx: heparin DC planning: placement. This patient was seen by Alberto Cardona PA-C under the supervision of Doctor Regulo. <Phillip Rajput - Last Filed: 10/10/17 18:07> Subjective: Seen and examined. Patient has dementia and is not able to give meaningful history. Was admitted for concern of seizure. Used EEG - Physical Exam General: Alert, Oriented x3, Cooperative Lungs: Clear to auscultation, Normal air movement Cardiovascular: Regular rate, No murmurs Extremities: No edema Neurological: Cranial nerves II-XII grossly intact, Neuro grossly intact Psych/Mental Status: - - Dementia Vital Signs Temp Pulse Resp BP Pulse Ox 97.8 F 50 L 16 138/63 H 100 10/10/17 14:56 10/10/17 14:56 10/10/17 14:56 10/10/17 14:56 10/10/17 14:56 Oxygen Delivery Method Room Air Weight: 185 lb 13.595 oz Body Mass Index (BMI) 28.2 Intake and Output for Last 24 Hours 10/08/17 10/09/17 10/10/17 23:59 23:59 23:59 Intake Total 580 / 580 966 / 966 Balance 580 / 580 966 / 966 Laboratory Tests Past 24 Hrs 10/10/17 05:44 Sodium 138 Potassium 3.5 Chloride 105 Carbon Dioxide 27.0 Anion Gap 6 BUN 11 Creatinine 1.13 Estim Creat Clear Calc 54.65 Est GFR (MDRD) Af Amer 81 Est GFR (MDRD) Non-Af 67 BUN/Creatinine Ratio 9.7 L Glucose 86 Calcium 8.4 L Assessment/Plan This patient was seen in conjunction with Alberto MORALES. I have independently interviewed and examined the patient and reviewed pertinent history, examination findings, laboratory and plan of management. I have reviewed the note and agree with the documented findings with the few additional points. In brief, patient is admitted for concern of seizure; possible atypical seizure. Started on Keppra by neurologist. I have discussed my assessment with Alberto MORALES and orders have been reviewed.
[2017-10-10] MEDS: Atenolol 100 MG Tablet 150 MG PO (13:54)
[2017-10-10] MEDS: Sertraline 50 MG Tablet PO (13:55)
[2017-10-10] MEDS: Triamterene 37.5MG/Hctz 25MG Capsule 1 CAP PO (13:55)
[2017-10-10] MEDS: Memantine Hydrochloride 10 MG Tablet PO (13:55)
[2017-10-10] MEDS: Pantoprazole Sodium 20 MG Tablet PO (13:55)
[2017-10-10] MEDS: Aspirin 81 MG TAB.CHEW PO (13:55)
[2017-10-10] MEDS: Tamsulosin HCl 0.4 MG Capsule PO (13:55)
--- NOTE | 2017-10-10 14:55 | PCM.DC ---
- Discharge Diagnoses Current Active Problems: Current Active and Chronic Problems Stage 3 chronic kidney disease (Chronic) Depression (Chronic) Benign prostatic hyperplasia (Chronic) Hyperlipidemia (Chronic) Hypertension (Chronic) Status post coronary artery bypass graft (Chronic) Coronary artery disease (Chronic) History of esophageal tear (Chronic) History of prostate cancer (Chronic) You will use the following diet at home:: No restrictions Your food should be the consistency of: Regular Your liquids should be the consistency of: Regular/Thin Discharge Activity: Return to Normal Activity Allergies/Adverse Reactions: Allergies No Known Allergies Allergy (Verified 10/09/17 12:04) Medications to take at Discharge Aspirin [Aspirin, Baby] 81 mg PO DAILY@0800 02/09/16 Atenolol [Tenormin (beta akua)] 150 mg PO DAILY 02/09/16 Hydralazine HCl 50 mg PO BID 02/09/16 Memantine HCl 10 mg PO BID 02/09/16 Pravastatin [Pravachol] 40 mg PO DAILY 02/09/16 Sertraline HCl [Zoloft] 50 mg PO DAILY 02/09/16 Triamterene/Hydrochlorothiazid [Triamterene-Hctz 37.5-25 mg Tb] 1 each PO DAILY 02/09/16 Chlorpromazine HCl 10 mg PO PRN PRN 03/09/16 Cholecalciferol (VIT D3) [Vitamin D3] 2,000 unit PO DAILY 03/09/16 Melatonin/Pyridoxine HCl (B6) [Melatonin 1 mg Tablet] 2.5 each PO QHS PRN PRN 03/09/16 Omeprazole [Prilosec] 20 mg PO BID 03/09/16 Tamsulosin HCl [Flomax] 0.4 mg PO DAILY 03/09/16 Amlodipine [Norvasc] 2.5 mg PO DAILY 10/09/17 levETIRAcetam tablet [Keppra tablet] 500 mg PO BID #60 tab 10/10/17 The following prescriptions were given: levETIRAcetam tablet [Keppra tablet] 500 mg PO BID #60 tab Primary Care Physician: Delia Shaikh DO [Primary Care Provider] - Please follow up with your Primary Care Physician in: 1-2 weeks Proposed Discharge Date: 10/10/17
--- NOTE | 2017-10-10 14:57 | PCM.DC.SUM ---
<Alberto Cardona - Last Filed: 10/10/17 14:57> Discharge Date and Diagnosis Date of Admission: 10/09/17 Date of Discharge: 10/10/17 - Primary Discharge Diagnosis ? Seizure vs Syncope noncompliant behavior Debility 2/2 worsening Dementia CKDIII BPH Depression HTN CAD Hx Prostate CA - Secondary Discharge Diagnosis Chronic Problems Stage 3 chronic kidney disease (Chronic) Depression (Chronic) Benign prostatic hyperplasia (Chronic) Hyperlipidemia (Chronic) Hypertension (Chronic) Status post coronary artery bypass graft (Chronic) Coronary artery disease (Chronic) History of esophageal tear (Chronic) History of prostate cancer (Chronic) Hospital Course and Treatment Imaging Results: CT/Brain/Head without Contrast IMPRESSION: Chronic involutional changes. No acute intracranial abnormality. The ventricles are slightly larger than on the prior CT of 11/04/2013. RAD/Chest 1 View (Portable) IMPRESSION: Postoperative changes of coronary artery bypass graft. No focal consolidation. MRI/Brain without Contrast IMPRESSION: Cerebral atrophy and ending which may be consistent with normal pressure hydrocephalus or sylvian aqueduct stenosis which has a similar appearance. Radionuclide cisternogram would be helpful for further assessment evaluation if indicated . Chronic ischemic changes within the willian and midbrain atrophy. No evidence for acute infarct Consults: Ochoa - neuro Operations: None Procedures: None Summary of Care Provided: Physical exam on day of discharge: See daily progress note Hospital course: The patient is a 76 year old M with a history of dementia, CAD status post CABG, hypertension, hyperlipidemia, esophageal tear, prostate cancer who presented to the ER sent from the office of his PCP with possible seizure history. He was reported as becoming stiff and unresponsive with staring eyes afterwards being very weak with increased urinary and fecal incontinence. He was reported that this was happening every few days since March 2017. He was admitted to the telemetry unit neurology was consulted. An MRI was obtained with no acute findings. The patient refused to have an EEG. Neurology placed him on Keppra 500 twice daily. He had no further issues while here. Initially the patient refused to take the keppra, and also refused all other medications. The patient had been functionally declining at home with worsening of his dementia. Initially the felt that she was unable to care for him at home and desired longterm placement. She later changed her mind and decided to take him home. Social work was arranging for the [place] to provide home care. He was discharged home in stable condition per the 's request with new prescription for Keppra. He will need to follow-up with neurology, and with his PCP. This patient was seen by Alberto Cardona PA-C under the supervision of Doctor Rajput. [] Discharge Diet: No Restrictions Discharge Activity: Return to Normal Activity Home Medications: Medications to take at Discharge Aspirin [Aspirin, Baby] 81 mg PO DAILY@0800 02/09/16 Atenolol [Tenormin (beta akua)] 150 mg PO DAILY 02/09/16 Hydralazine HCl 50 mg PO BID 02/09/16 Memantine HCl 10 mg PO BID 02/09/16 Pravastatin [Pravachol] 40 mg PO DAILY 02/09/16 Sertraline HCl [Zoloft] 50 mg PO DAILY 02/09/16 Triamterene/Hydrochlorothiazid [Triamterene-Hctz 37.5-25 mg Tb] 1 each PO DAILY 02/09/16 Chlorpromazine HCl 10 mg PO PRN PRN 03/09/16 Cholecalciferol (VIT D3) [Vitamin D3] 2,000 unit PO DAILY 03/09/16 Melatonin/Pyridoxine HCl (B6) [Melatonin 1 mg Tablet] 2.5 each PO QHS PRN PRN 03/09/16 Omeprazole [Prilosec] 20 mg PO BID 03/09/16 Tamsulosin HCl [Flomax] 0.4 mg PO DAILY 03/09/16 Amlodipine [Norvasc] 2.5 mg PO DAILY 10/09/17 levETIRAcetam tablet [Keppra tablet] 500 mg PO BID #60 tab 10/10/17 Following Prescrptions Were Given to Patient: levETIRAcetam tablet [Keppra tablet] 500 mg PO BID #60 tab Primary Care Physician: Delia Shaikh DO [Primary Care Provider] - Please follow up with your Primary Care Physician in: 1-2 weeks Please Follow Up With: Umair Ochoa MD When: 1-2 weeks Disposition: Home - [place] [facility] Minutes spent on discharge:: 35 Patient Condition:: Stable Medical Necessity - Tobacco Use Smoking Status: Former smoker Tobacco Use: Non-smoker Meaningful Use Info Meaningful Use Diagnoses (Choose all that apply): None applicable <Phillip Rajput - Last Filed: 10/10/17 16:08> Discharge Date and Diagnosis - Secondary Discharge Diagnosis Chronic Problems Stage 3 chronic kidney disease (Chronic) Depression (Chronic) Benign prostatic hyperplasia (Chronic) Hyperlipidemia (Chronic) Hypertension (Chronic) Status post coronary artery bypass graft (Chronic) Coronary artery disease (Chronic) History of esophageal tear (Chronic) History of prostate cancer (Chronic) Hospital Course and Treatment Summary of Care Provided: This patient was seen in conjunction with Alberto MORALES. I have independently interviewed and examined the patient and reviewed pertinent history, examination findings, laboratory and plan of management. I have reviewed the note and agree with the documented findings with the few additional points. In brief, patient is admitted for possible evaluation of seizure. He had an atypical episode of stiffness and unresponsiveness staring eyes, suggestive of atypical seizure. Patient is not able to give meaningful history and he has dementia. Discharge medication reconciliation done. Follow-up instructions given. Total time spent, exact 35 minutes on discharge meds reconciliation, examination, review of imaging and blood test and discussion with the patient on follow-up instructions. I have discussed my assessment with Alberto MORALES and orders have been reviewed. [] Code Visit Inpatient E&M: 75455 Disch Hosp
--- NOTE | 2017-10-10 15:04 | DS.PCM_ITS ---
<Alberto Cardona - Last Filed: 10/10/17 14:57> Discharge Date and Diagnosis Date of Admission: 10/09/17 Date of Discharge: 10/10/17 - Primary Discharge Diagnosis ? Seizure vs Syncope noncompliant behavior Debility 2/2 worsening Dementia CKDIII BPH Depression HTN CAD Hx Prostate CA - Secondary Discharge Diagnosis Chronic Problems Stage 3 chronic kidney disease (Chronic) Depression (Chronic) Benign prostatic hyperplasia (Chronic) Hyperlipidemia (Chronic) Hypertension (Chronic) Status post coronary artery bypass graft (Chronic) Coronary artery disease (Chronic) History of esophageal tear (Chronic) History of prostate cancer (Chronic) Hospital Course and Treatment Imaging Results: CT/Brain/Head without Contrast IMPRESSION: Chronic involutional changes. No acute intracranial abnormality. The ventricles are slightly larger than on the prior CT of 11/04/2013. RAD/Chest 1 View (Portable) IMPRESSION: Postoperative changes of coronary artery bypass graft. No focal consolidation. MRI/Brain without Contrast IMPRESSION: Cerebral atrophy and ending which may be consistent with normal pressure hydrocephalus or sylvian aqueduct stenosis which has a similar appearance. Radionuclide cisternogram would be helpful for further assessment evaluation if indicated . Chronic ischemic changes within the willian and midbrain atrophy. No evidence for acute infarct Consults: Ochoa - neuro Operations: None Procedures: None Summary of Care Provided: Physical exam on day of discharge: See daily progress note Hospital course: The patient is a 76 year old M with a history of dementia, CAD status post CABG , hypertension, hyperlipidemia, esophageal tear, prostate cancer who presented to the ER sent from the office of his PCP with possible seizure history. He was reported as becoming stiff and unresponsive with staring eyes afterwards being very weak with increased urinary and fecal incontinence. He was reported that this was happening every few days since March 2017. He was admitted to the telemetry unit neurology was consulted. An MRI was obtained with no acute findings. The patient refused to have an EEG. Neurology placed him on Keppra 500 twice daily. He had no further issues while here. Initially the patient refused to take the keppra, and also refused all other medications. The patient had been functionally declining at home with worsening of his dementia. Initially the felt that she was unable to care for him at home and desired fdc placement. She later changed her mind and decided to take him home. Social work was arranging for the [place] to provide home care. He was discharged home in stable condition per the 's request with new prescription for Keppra. He will need to follow-up with neurology, and with his PCP. This patient was seen by Alberto Cardona PA-C under the supervision of Doctor Rajput. [] Discharge Diet: No Restrictions Discharge Activity: Return to Normal Activity Home Medications: Medications to take at Discharge Aspirin [Aspirin, Baby] 81 mg PO DAILY@0800 02/09/16 Atenolol [Tenormin (beta akua)] 150 mg PO DAILY 02/09/16 Hydralazine HCl 50 mg PO BID 02/09/16 Memantine HCl 10 mg PO BID 02/09/16 Pravastatin [Pravachol] 40 mg PO DAILY 02/09/16 Sertraline HCl [Zoloft] 50 mg PO DAILY 02/09/16 Triamterene/Hydrochlorothiazid [Triamterene-Hctz 37.5-25 mg Tb] 1 each PO DAILY 02/09/16 Chlorpromazine HCl 10 mg PO PRN PRN 03/09/16 Cholecalciferol (VIT D3) [Vitamin D3] 2,000 unit PO DAILY 03/09/16 Melatonin/Pyridoxine HCl (B6) [Melatonin 1 mg Tablet] 2.5 each PO QHS PRN PRN Omeprazole [Prilosec] 20 mg PO BID 03/09/16 Tamsulosin HCl [Flomax] 0.4 mg PO DAILY 03/09/16 Amlodipine [Norvasc] 2.5 mg PO DAILY 10/09/17 levETIRAcetam tablet [Keppra tablet] 500 mg PO BID #60 tab 10/10/17 Following Prescrptions Were Given to Patient: levETIRAcetam tablet [Keppra tablet] 500 mg PO BID #60 tab Primary Care Physician: Delia Shaikh DO [Primary Care Provider] - Please follow up with your Primary Care Physician in: 1-2 weeks Please Follow Up With: Umair Ochoa MD When: 1-2 weeks Disposition: Home - [place] home [facility] Minutes spent on discharge:: 35 Patient Condition:: Stable Medical Necessity - Tobacco Use Smoking Status: Former smoker Tobacco Use: Non-smoker Meaningful Use Info Meaningful Use Diagnoses (Choose all that apply): None applicable <Phillip Rajput - Last Filed: 10/10/17 16:08> Discharge Date and Diagnosis - Secondary Discharge Diagnosis Chronic Problems Stage 3 chronic kidney disease (Chronic) Depression (Chronic) Benign prostatic hyperplasia (Chronic) Hyperlipidemia (Chronic) Hypertension (Chronic) Status post coronary artery bypass graft (Chronic) Coronary artery disease (Chronic) History of esophageal tear (Chronic) History of prostate cancer (Chronic) Hospital Course and Treatment Summary of Care Provided: This patient was seen in conjunction with Alberto MORALES. I have independently interviewed and examined the patient and reviewed pertinent history, examination findings, laboratory and plan of management. I have reviewed the note and agree with the documented findings with the few additional points. In brief, patient is admitted for possible evaluation of seizure. He had an atypical episode of stiffness and unresponsiveness staring eyes, suggestive of atypical seizure. Patient is not able to give meaningful history and he has dementia. Discharge medication reconciliation done. Follow-up instructions given. Total time spent, exact 35 minutes on discharge meds reconciliation, examination , review of imaging and blood test and discussion with the patient on follow-up instructions. I have discussed my assessment with Alberto MORALES and orders have been reviewed. [] Code Visit Inpatient E&M: 69773 Disch Hosp
--- NOTE | 2017-10-10 15:06 | CASEMGMT ---
Addendum entered by Elizabeth Garcia 10/10/17 15:26: SANDRA received message from SANDRA Sosa at [facility], asking to have [facility] faxed to [phone]. SANDRA faxed it to this number. SHAHNAZ Savage, UNIX SYSTEM ADMINISTRATOR Original Note: SANDRA faxed GEC form to [facility] in [place]. Yasmin MIRELES UNIX SYSTEM ADMINISTRATOR
== END 2017-10-10 15:58 | disposition home health service (06) | DRG 101 ==
LOC: ED 12:52 → PCU 14:42
PROVIDERS: Admitting Provider Hospitalist; Emergency Provider Emergency Medicine; Family Provider Internal Medicine; PCP Internal Medicine; Visit Provider Internal Medicine
DX: R56.9 Unspecified convulsions (principal); R55 Syncope and collapse; I25.10 Atherosclerotic heart disease of native coronary artery without angina pectoris; Z95.1 Presence of aortocoronary bypass graft; I12.9 Hypertensive chronic kidney disease with stage 1 through stage 4 chronic kidney disease, or unspecified chronic kidney disease; N18.3 Chronic kidney disease, stage 3 (moderate); E78.5 Hyperlipidemia, unspecified; Z79.899 Other long term (current) drug therapy; E87.6 Hypokalemia; F32.9 Major depressive disorder, single episode, unspecified; F03.90 Unspecified dementia, unspecified severity, without behavioral disturbance, psychotic disturbance, mood disturbance, and anxiety; N40.0 Benign prostatic hyperplasia without lower urinary tract symptoms; Z87.891 Personal history of nicotine dependence; Z85.46 Personal history of malignant neoplasm of prostate; R53.81 Other malaise; Z91.19 Patient's noncompliance with other medical treatment and regimen
CPT/HCPCS: 36415; 70450; 70551; 71045; 80048; 80053; 81001; 85025; 93005; 99283; P9612; A4216

== ENCOUNTER 2017-12-13 00:34 | Emergency (ER) | payer SELFPAY ==
[2017-12-13 00:36] VITALS: BP 134/80; PULSE 63; RESP 20; TEMP 35.7; O2SAT 91; BMI 25.2
--- NOTE | 2017-12-13 01:42 | ED.VISSUMM ---
- ER Visit Summary Date of Service: 12/13/17 Chief Complaint: [hiccups] History of Present Illness: The patient is a 77 M [hospice patient that presents with intractable hiccups for the last week. [employer] accompanies patient. They have tried Thorazine, Ativan, and Baclofen. He continues to have hiccups. Family wants patient to remain in hospice and wants no unnecessary tests or treatment. They only want comfort measures.] Physical Examination: [General: The patient appears well and in no apparent distress. Patient is resting comfortably on cart. Skin: Warm, dry, no pallor noted. No rash. Head: Normocephalic, atraumatic Neck: Supple Eye: PERRA ENT: Moist mucus membranes, pharynx within normal limits. Cardiovascular: Regular Rate and Rhythm, no gallups or rubs Respiratory: Patient is in no distress, no accessory muscle use, lungs are clear to auscultation, no wheezing, rales or rhonchi. +Hiccups Musculoskeletal: no deformity, no swelling. GI: Soft and nondistended. Neurological: Awake, minimally responsive. He does not follow commands. Patient at baseline per ends down checker and family at bedside ] Test Results: [CXR; no acute process] Emergency Department Course and Treatment: [Patient was ordered Reglan and Benadryl IV however prior to receiving these medications his hiccups stopped spontaneously. He was not given these medications. Chest x-ray shows no evidence of infiltrate or other diaphragmatic irritation that I am able to ascertain. Patient checkups are currently resolved. Family does not want any further treatment. Patient will be discharged back to nursing facility with hospice.] Treatment Plan: [See above] Disposition: [Discharge back to nursing facility, stable condition] Impression: [Intractable hiccups - resolved] This note was generated with [employer] dictation software. It may contain incorrect words, spelling, and punctuation that were not noted in review of the chart prior to signing ED Disposition - Plan for ED Patient: Disposition: Custodial Facility Chief Complaint: Other, Pain/Inj Instructions: ED Hiccups Referrals: Delia Shaikh DO [Primary Care Provider] -
[2017-12-13 01:52] VITALS: BP 130/70; PULSE 62; RESP 19
== END 2017-12-13 02:10 | disposition skilled nursing facility (03) ==
PROVIDERS: Emergency Provider Emergency Medicine; Family Provider Internal Medicine; PCP Internal Medicine
DX: R06.6 Hiccough (principal); G30.9 Alzheimer's disease, unspecified; F02.80 Dementia in other diseases classified elsewhere, unspecified severity, without behavioral disturbance, psychotic disturbance, mood disturbance, and anxiety; Z66 Do not resuscitate
CPT/HCPCS: 71045; 99284; A4216